=== PATIENT | female | born 1980 | race Caucasian/White ===

== ENCOUNTER 2018-12-28 13:49 | Emergency (ER) | payer OTHER ==
[2018-12-28 13:58] VITALS: BP 120/84; PULSE 81; TEMP 97.9; BMI 21.2
--- NOTE | 2018-12-28 14:06 | PDOC ---
History of Present Illness - General Chief Complaint: Hematuria Stated Complaint: INTERMITTENT HEMATURIA Time Seen by Provider: 12/28/18 13:50 History Source: Patient Exam Limitations: No Limitations - History of Present Illness Initial Comments: 12/28/18 14:01 38 year old female with PMH of kidney stones p/w hematuria x 2 weeks. 2 weeks ago, noted the symptom. Took 3 days of macrobid with improvement of symptoms with assumption that this could be cystitis. Visited her [employer] where she underwent pelvic examination and transvaginal ultrasound. Pt was told she had "anteverted" uterus but no other significant findings. Since then, has been having persistent dull suprapubic pain. Occasionally endorses flank pain but none now. No fevers, chills. Occasional nausea. LMP ~ 1 month ago. Continues to have persistent hematuria. Has had prior kidney stones in college. Past History - Past Medical History Allergies/Adverse Reactions: Allergies Allergy/AdvReac Type Severity Reaction Status Date / Time No Known Allergies Allergy Unverified 12/28/18 13:51 Home Medications: Ambulatory Orders Cholecalciferol (Vitamin D3) [Vitamin D3] 5,000 unit PO DAILY 12/28/18 Multivit with Calcium,Iron,Min [One Daily Women's] 1 each PO DAILY 12/28/18 Review of Systems - Review of Systems Able to Perform ROS?: Yes Comments:: 12/28/18 14:06 GENERAL/CONSTITUTIONAL: [No fever or chills. No weakness. No weight change.] HEAD, EYES, EARS, NOSE AND THROAT: [No change in vision. No ear pain or discharge. No sore throat.] CARDIOVASCULAR: [No chest pain or shortness of breath.] RESPIRATORY: [No cough, wheezing, or hemoptysis.] GASTROINTESTINAL: [No nausea, vomiting, diarrhea or constipation. No rectal bleeding.] + lower abd discomfort GENITOURINARY: [No dysuria, frequency, or change in urination.] +hematuria. MUSCULOSKELETAL: [No joint or muscle swelling or pain. No neck or back pain.] SKIN AND BREASTS: [No rash or easy bruising.] NEUROLOGIC: [No headache, vertigo, loss of consciousness, or loss of sensation.] PSYCHIATRIC: [No depression or anxiety.] ENDOCRINE: [No increased thirst. No abnormal weight change.] HEMATOLOGIC/LYMPHATIC: [No anemia, easy bleeding, or history of blood clots.] ALLERGIC/IMMUNOLOGIC: [No hives or skin allergy. No latex allergy.] *Physical Exam - Physical Exam Comments: 12/28/18 14:06 GENERAL: Awake, alert, and fully oriented, in no acute distress HEAD: No signs of trauma EYES: EOMI, sclera anicteric, conjunctiva clear ENT: Auricles normal inspection, hearing grossly normal, nares patent, NECK: Normal ROM, supple ABDOMEN: Soft, mild suprapubic tenderness. No guarding, no rebound. No masses EXTREMITIES: Normal range of motion, no edema. No clubbing or cyanosis. No cords, erythema, or tenderness NEUROLOGICAL: Cranial nerves II through XII grossly intact. Normal speech, normal gait SKIN: Warm, Dry, normal turgor, no rashes or lesions noted. ED Treatment Course - LABORATORY CBC & Chemistry Diagram: 12/28/18 14:12 12/28/18 14:12 - RADIOLOGY Radiology Studies Ordered: Category Date Time Status KIDNEY / RENAL US [US] Stat Ultrasound 12/28/18 13:53 Ordered PELVIC / BLADDER US [US] Stat Ultrasound 12/28/18 13:54 Ordered Medical Decision Making - Medical Decision Making 12/28/18 14:08 Impression: hematuria Differential includes renal colic, cystitis Labs to check Cr, UA/UC Renal and bladder ultrasound PGU and reassess. 12/28/18 15:36 CBC, BMP 12/28/18 14:12 12/28/18 14:12 CMP Sodium 135 mmol/L (136-145) L 12/28/18 14:12 Potassium 4.2 mmol/L (3.5-5.1) 12/28/18 14:12 Chloride 106 mmol/L (98-107) 12/28/18 14:12 Carbon Dioxide 23 mmol/L (21-32) 12/28/18 14:12 Anion Gap 6 MMOL/L (8-16) L 12/28/18 14:12 BUN 12 mg/dl (7-18) 12/28/18 14:12 Creatinine 0.7 mg/dl (0.55-1.3) 12/28/18 14:12 Creat Clearance w eGFR > 60 (>60) 12/28/18 14:12 Random Glucose 89 mg/dl (74-106) 12/28/18 14:12 Calcium 8.9 mg/dl (8.5-10) 12/28/18 14:12 Total Bilirubin 0.3 mg/dl (0.2-1) 12/28/18 14:12 AST 19 U/L (15-37) 12/28/18 14:12 ALT 13 U/L (13-61) 12/28/18 14:12 Alkaline Phosphatase 49 U/L (45-117) 12/28/18 14:12 Total Protein 7.3 g/dl (6.4-8.2) 12/28/18 14:12 Albumin 4.3 g/dl (3.4-5.0) 12/28/18 14:12 Urine Test Results Urine Color Yellow 12/28/18 14:12 Urine Appearance Clear 12/28/18 14:12 Urine pH 5.5 (4.5-8) 12/28/18 14:12 Ur Specific [place] 1.025 (1.010-1.035) 12/28/18 14:12 Urine Protein Negative (NEGATIVE) 12/28/18 14:12 Urine Glucose (UA) Negative (NEGATIVE) 12/28/18 14:12 Urine Ketones Negative (NEGATIVE) 12/28/18 14:12 Urine Blood Negative (NEGATIVE) 12/28/18 14:12 Urine Nitrite Negative (NEGATIVE) 12/28/18 14:12 Urine Bilirubin Negative (NEGATIVE) 12/28/18 14:12 Ur Leukocyte Esterase Negative (NEGATIVE) 12/28/18 14:12 PGU negative. At this time, unclear etiology of hematology. I recommended follow up with urology for potential outpatient cystoscopy. Will add on CPK, and pt's partner, Dr. Roberts, will follow up. Return precautions given, including worsening symptoms. Pt advised that she potentially may need CT spiral if has worsening hematuria/ flank pain. *DC/Admit/Observation/Transfer Diagnosis at time of Disposition: Hematuria Qualifiers: Hematuria type: unspecified type Qualified Code(s): R31.9 - Hematuria, unspecified - Discharge Dispostion Disposition: HOME Condition at time of disposition: Stable - Referrals - Patient Instructions Printed Discharge Instructions: DI for Hematuria Additional Instructions: Your workup demonstrates no acute findings at this time. Please follow up with a urologist for potential cystoscopy. If you have worsening pain or worsening bleeding, please return to the ER for further evaluation. Call back for the final results for your CPK. - Post Discharge Activity
[2018-12-28 14:34] LABS: BASO % 0.5 % (0-2.0); EOS % 0.7 % (0-4.5); HEMATOCRIT 37.2 % (32.4-45.2); HEMOGLOBIN 12.3 GM/dl (10.7-15.3); LYMPH % 35.4 % (8-40); MEAN CELL VOLUME 87.8 fl (80-96); MEAN PLT VOLUME 9.1 fl (7.5-11.1); MONO % 5.9 % (3.8-10.2); NEUT % 57.5 % (42.8-82.8); PLATELET COUNT 234 K/MM3 (134-434); RBC 4.24 M/mm3 (3.60-5.2); RDW 13.1 % (11.6-15.6); WHITE BLOOD COUNT 6.1 K/mm3 (4.0-10.8)
[2018-12-28 15:02] LABS: ALBUMIN 4.3 g/dl (3.4-5.0); ALK PHOS 49 U/L (45-117); ANION GAP 6 MMOL/L (8-16); BILIRUBIN,TOTAL 0.3 mg/dl (0.2-1); BLOOD UREA NITROGEN 12 mg/dl (7-18); CALCIUM 8.9 mg/dl (8.5-10); CHLORIDE 106 mmol/L (98-107); CO2 23 mmol/L (21-32); CREATININE 0.7 mg/dl (0.55-1.3); GLUCOSE,RANDOM 89 mg/dl (74-106); POTASSIUM 4.2 mmol/L (3.5-5.1); SGOT/AST 19 U/L (15-37); SGPT/ALT 13 U/L (13-61); SODIUM 135 mmol/L (136-145); TOT PROT 7.3 g/dl (6.4-8.2)
[2018-12-28 15:15] LABS: HCG,QUALITATIVE URINE NEGATIVE
[2018-12-28 15:22] LABS: PH,URINE 5.5 (4.5-8); URINE APPEARANCE Clear; URINE BILIRUBIN Negative (NEGATIVE); URINE COLOR Yellow; URINE GLUCOSE (UA) Negative (NEGATIVE); URINE KETONE Negative (NEGATIVE); URINE LEUK ESTERASE Negative (NEGATIVE); URINE NITRITE Negative (NEGATIVE); URINE PROTEIN Negative (NEGATIVE); URINE UROBILINOGEN 0.2 (0.2-1.0)
== END 2018-12-28 15:43 | disposition home or self-care (01) ==
LOC: FER 13:49
DX: R31.9 Hematuria, unspecified (principal); Z87.442 Personal history of urinary calculi
CPT/HCPCS: 36415; 76775-TC; 76856-TC; 80053; 81003; 82550; 84703; 85025; 87086; 99282-25

== ENCOUNTER 2023-04-08 13:10 | Day surgery (SDC) | payer OTHER ==
[~2023-04-08 13:10] MED LIST: ACETAMINOPHEN 325 MG TABLET (FP) PO ONE; FERRIC CARBOXYMALTOSE 750 MG in SODIUM CHLORIDE 250 ML IVPB ONE; diphenhydrAMINE HCL 12.5 MG/5 ML UNIT-DOSE CUPS PO ONE
[2023-04-08 18:10] VITALS: PULSE 76; RESP 18; TEMP 98.3
[2023-04-09 07:29] VITALS: BP 96/52
== END 2023-04-08 15:55 | disposition home or self-care (01) ==
LOC: JONCNONCHE 13:10 → J7W 13:11 → JONCNONCHE 15:55
PROVIDERS: ATTEND Internal Medicine Hematology & Oncology
PROC: 3E033GC Introduction of Other Therapeutic Substance into Peripheral Vein, Percutaneous Approach (ICD-10-PCS; principal; 2023-04-08)
DX: D50.9 Iron deficiency anemia, unspecified (principal)
CPT/HCPCS: 84703; 96365; J1439